=== PATIENT | male | born 1980 | race African-American/Black ===

== ENCOUNTER 2022-07-28 07:36 | Emergency (ER) | payer OTHER, SELFPAY ==
[2022-07-28] MEDS ORDERED: HYDROCODONE/APAP 10/325 TAB ONE (08:26)
--- NOTE | 2022-07-28 09:20 | RAD REPORT ---
EXAM DESCRIPTION: RAD - Knee Left 3 View - 07/28/2022 9:02 am CLINICAL HISTORY: PAIN COMPARISON: No comparisons FINDINGS: The medial tibial plateau is fractured. There appears to be a sagittally oriented fracture plane in the medial tibial plateau near the tibial spine. An additional fracture line is seen extend ing towards the medial cortical margin. No depression of the medial tibial plateau. No other fracture changes are seen.Small joint effusion is identified. No lipoma hemarthrosis identif ied. No joint space narrowing. No soft tissue abnormality. IMPRESSION: Left knee medial tibial plateau fracture without depression or displacement.
--- NOTE | 2022-07-28 09:33 | EDPHYS ---
Physician Documentation [facility] Name: Galo Yanez Age: 41 yrs Sex: Male : 1980 Arrival Date: 07/28/2022 Time: 07:37 Bed 8 Private MD: ED Physician Sincere Lindo HPI: 07/28 08:03 This 41 yrs old Black Male presents to ER via EMS with complaints of knee injury. rn 08:19 The patient presents with decreased range of motion, an injury, pain. The complaints rn affect the left knee. Onset: The symptoms/episode began/occurred just prior to arrival. Modifying factors: The symptoms are alleviated by remaining still, the symptoms are aggravated by movement, weight bearing, bending knee. Severity of symptoms: At their worst the symptoms were moderate, in the emergency department the symptoms are unchanged. The patient has not experienced similar symptoms in the past. The patient has not recently seen a physician. Pt reports attacked by 2 dogs today, was running away and jumped into truck, hurting left knee. Reports swelling and painful ROM. NO previous knee problem. Reports small skin tears/dog bites but not bad and he is not here for the bites. . Historical: - Allergies: 07:49 No Known Allergies; mb9 - Home Meds: 07:49 None [Active]; mb9 - PMHx: 07:49 Anxiety; mb9 - PSHx: 07:49 None; mb9 - Immunization history:: Adult Immunizations up to date. - Social history:: Smoking status: Patient reports the use of cigarette tobacco products, smokes one-half pack cigarettes per day. - Family history:: not pertinent. - Hospitalizations: : No recent hospitalization is reported. ROS: 08:19 Constitutional: Negative for fever, chills, and weight loss, Cardiovascular: Negative rn for chest pain, palpitations, and edema, Respiratory: Negative for shortness of breath, cough, wheezing, and pleuritic chest pain, Abdomen/GI: Negative for abdominal pain, nausea, vomiting, diarrhea, and constipation, Back: Negative for injury and pain, MS/Extremity: + left knee pain Skin: + small skin tears and dog bites to right shoulder/right foot/right thigh Neuro: Negative for headache, weakness, numbness, tingling, and seizure. Exam: 08:19 Constitutional: This is a well developed, well nourished patient who is awake, alert, rn and in no acute distress. Head/Face: Normocephalic, atraumatic. Eyes: Periorbital areas with no swelling, redness, or edema. Cardiovascular: Regular rate and rhythm. No pulse deficits. Respiratory: No increased work of breathing, no retractions or nasal flaring. Abdomen/GI: Soft, non-tender Skin: Superficial skin tears/abrasions to right shoulder/right posterior thigh, and right foot. MS/ Extremity: Pulses equal, no cyanosis. + left knee effusion and painful ROM, no open wounds Neuro: Awake and alert, GCS 15 Vital Signs: 07:40 BP 152 / 95; Pulse 66; Resp 18; Temp 98(O); Pulse Ox 100% on R/A; Pain 10/10; mb9 07:56 BP 154 / 103; Pulse 75; Resp 18; Temp 98; Pulse Ox 100% on R/A; Weight 86.18 kg; Height mb9 5 ft. 6 in. (167.64 cm); Pain 10/10; 09:30 BP 144 / 90; Pulse 82; Resp 18; Pulse Ox 100% on R/A; mb9 07:56 Body Mass Index 30.67 (86.18 kg, 167.64 cm) mb9 MDM: 07:39 Patient medically screened. rn 09:30 Differential diagnosis: closed fracture. Data reviewed: vital signs, nurses notes, rn radiologic studies, plain films, and as a result, I will discharge patient. Counseling: I had a detailed discussion with the patient and/or guardian regarding: the historical points, exam findings, and any diagnostic results supporting the discharge/admit diagnosis, radiology results, the need for outpatient follow up, to return to the emergency department if symptoms worsen or persist or if there are any questions or concerns that arise at home. Response to treatment: the patient's symptoms have mildly improved after treatment, and as a result, I will discharge patient. Special discussion: I discussed with the patient/guardian in detail that at this point there is no indication for admission to the hospital. It is understood, however, that if the symptoms persist or worsen the patient needs to return immediately for re-evaluation. Based on the history and exam findings, there is no indication for further emergent testing or inpatient evaluation. I discussed with the patient/guardian the need to see the orthopedic surgeon for further evaluation of the symptoms. ED course: Pt with nondisplaced tibial plateau fracture, will place in knee immobilizer and dc home with ortho f/u, non-weight bearing and crutches.. 07/28 07:39 Order name: XRAY Knee LEFT 3 view; Complete Time: 09:29 rn 07/28 07:39 Order name: Wound Care; Complete Time: 08:28 rn 07/28 07:39 Order name: Wound dressing; Complete Time: 08:28 rn 07/28 08:03 Order name: Knee Immobilizer; Complete Time: 08:49 rn 07/28 08:03 Order name: Crutches; Complete Time: 08:49 rn Administered Medications: 08:27 Drug: [place] (HYDROcodone-acetaminophen) 10 mg-325 mg 1 tabs Route: PO; mb9 10:01 Follow up: Response: No adverse reaction mb9 Disposition Summary: 07/28/22 09:32 Discharge Ordered Location: Home rn Problem: new rn Symptoms: have improved rn Condition: Stable rn Diagnosis - Left, acute, closed, tibial plateau fracture rn Followup: rn - With: Carson Bella MD - When: 2 - 3 days - Reason: Recheck today's complaints, Re-evaluation by your physician Discharge Instructions: - Nondisplaced Tibial Plateau Fracture rn - Discharge Summary Sheet aa5 - Crutch Use, Adult, [id number] aa5 Forms: - Medication Reconciliation Form rn - Thank You Letter rn - Antibiotic rn chemical dependency - Prescription Opioid Use rn - Work release form tw2 Prescriptions: - Tylenol-Codeine #3 300 mg-30 mg Oral - take 1 tablet by ORAL route every 6-8 hours As needed; 15 tablet; Refills: 0, rn Product Selection Permitted - Augmentin 875-125 mg Oral Tablet - take 1 tablet by ORAL route every 12 hours for 10 days; 20 tablet; Refills: 0, rn Product Selection Permitted Signatures: Dispatcher [employer] Sincere William MD MD rn Breneman, Mary Beth, RN RN mb9 Corrections: (The following items were deleted from the chart) 07:42 07:42 Knee Left 3 View ordered. EDMS EDMS
--- NOTE | 2022-07-28 09:33 | ER ---
Nurse's Notes [facility] Name: Galo Yanez Age: 41 yrs Sex: Male : 1980 Arrival Date: 07/28/2022 Time: 07:37 Bed 8 Private MD: Diagnosis: Left, acute, closed, tibial plateau fracture Presentation: 07/28 07:38 Note provider at bedside at this time. tw2 07:40 Chief complaint: EMS states: "pt was walking to store last night and two pit bulls came mb9 after him. They bit his right foot, right thigh, and right shoulder. He hurt his left knee while jumping onto a car to get away". Coronavirus screen: Vaccine status: Patient reports receiving the 2nd dose of the covid vaccine. Ebola Screen: No symptoms or risks identified at this time. Initial Sepsis Screen: Does the patient meet any 2 criteria? No. Patient's initial sepsis screen is negative. Does the patient have a suspected source of infection? No. Patient's initial sepsis screen is negative. Risk Assessment: Do you want to hurt yourself or someone else? Patient reports no desire to harm self or others. 07:40 Method Of Arrival: EMS: [facility] mb9 07:40 Acuity: AGUSTÍN 3 mb9 07:40 Onset of symptoms was July 27, 2022. mb9 Triage Assessment: 07:50 General: Appears uncomfortable, Behavior is calm, cooperative, appropriate for age. mb9 Pain: Complains of pain in left knee Pain currently is 10 out of 10 on a pain scale. Quality of pain is described as burning, aching. Neuro: Derm: Skin is dry, Skin is normal. Historical: - Allergies: 07:49 No Known Allergies; mb9 - Home Meds: 07:49 None [Active]; mb9 - PMHx: 07:49 Anxiety; mb9 - PSHx: 07:49 None; mb9 - Immunization history:: Adult Immunizations up to date. - Social history:: Smoking status: Patient reports the use of cigarette tobacco products, smokes one-half pack cigarettes per day. - Family history:: not pertinent. - Hospitalizations: : No recent hospitalization is reported. Screenin:37 Abuse screen: Denies threats or abuse. Nutritional screening: No deficits noted. tw2 Tuberculosis screening: No symptoms or risk factors identified. Fall Risk None identified. Assessment: 07:51 General: Appears uncomfortable, Behavior is calm, cooperative, appropriate for age. mb9 Pain: Complains of pain in left knee Pain does not radiate. Pain currently is 10 out of 10 on a pain scale. Quality of pain is described as burning, aching, Pain began 1 day ago. Aggravated by increased activity, repositioning, weight bearing. Neuro: Level of Consciousness is awake, alert, obeys commands, Oriented to person, place, time, situation, Appropriate for age. Cardiovascular: Heart tones S1 S2 present Rhythm is regular. Respiratory: Airway is patent Respiratory effort is even, unlabored, Respiratory pattern is regular, Breath sounds are clear bilaterally. GI: Abdomen is flat, Bowel sounds present X 4 quads. : No signs and/or symptoms were reported regarding the genitourinary system. EENT: No signs and/or symptoms were reported regarding the EENT system. Derm: Skin is dry, Skin is normal, Skin temperature is warm dog bite noted to right shoulder, right posterior thigh, and right foot. No active bleeding noted. Musculoskeletal: Capillary refill < 3 seconds, Range of motion: limited in left knee Swelling present in left knee. 07:56 Reassessment: [place] [employer] notified last night after incident occurred. Case/incident mb9 number is [id number]. 09:29 General: Appears in no apparent distress. Behavior is calm, cooperative, appropriate mb9 for age. Pain: Complains of pain in left knee Quality of pain is described as burning, aching. Neuro: Level of Consciousness is awake, alert, obeys commands, Oriented to person, place, time, situation, Appropriate for age. Cardiovascular: Heart tones S1 S2 present Rhythm is regular. Respiratory: Airway is patent Respiratory effort is even, unlabored, Respiratory pattern is regular, Breath sounds are clear bilaterally. Derm: Skin is dry, Skin is normal, Skin temperature is warm. Musculoskeletal: Capillary refill < 3 seconds, Range of motion: limited in left knee Swelling. Vital Signs: 07:40 BP 152 / 95; Pulse 66; Resp 18; Temp 98(O); Pulse Ox 100% on R/A; Pain 10/10; mb9 07:56 BP 154 / 103; Pulse 75; Resp 18; Temp 98; Pulse Ox 100% on R/A; Weight 86.18 kg; Height mb9 5 ft. 6 in. (167.64 cm); Pain 10/10; 09:30 BP 144 / 90; Pulse 82; Resp 18; Pulse Ox 100% on R/A; mb9 07:56 Body Mass Index 30.67 (86.18 kg, 167.64 cm) mb9 ED Course: 07:35 Arm band placed on. mb9 07:37 Patient arrived in ED. tw2 07:37 Bed in low position. Call light in reach. Pulse ox on. NIBP on. Warm blanket given. tw2 07:39 Sincere Lindo MD is Attending Physician. rn 07:40 Josephine Good, RN is Primary Nurse. mb9 07:49 Triage completed. mb9 09:04 XRAY Knee LEFT 3 view In Process Unspecified. EDMS 09:31 Carson Bella MD is Referral Physician. rn 09:31 No provider procedures requiring assistance completed. mb9 10:10 Patient did not have IV access during this emergency room visit. mb9 Administered Medications: 08:27 Drug: [place] (HYDROcodone-acetaminophen) 10 mg-325 mg 1 tabs Route: PO; mb9 10:01 Follow up: Response: No adverse reaction mb9 Medication: 09:32 VIS not applicable for this client. mb9 Outcome: 09:32 Discharge ordered by . rn 10:09 Discharged to home via wheelchair. mb9 10:09 Condition: stable 10:09 Discharge instructions given to patient, Instructed on discharge instructions, follow up and referral plans. Demonstrated understanding of instructions, follow-up care, medications, Prescriptions given X 2. 10:10 Patient left the ED. mb9 Signatures: Dispatcher [employer] EDMS Sincere Lindo MD MD rn Wise, Tara, RN RN tw2 Josephine Good, RN RN mb9
[2022-07-28 10:14] VITALS: TEMP 98; O2SAT 100
[2022-07-28 10:17] VITALS: BP 144/90
== END 2022-07-28 10:10 | disposition home or self-care (01) ==
LOC: ER 07:36
DX: S82.142A Displaced bicondylar fracture of left tibia, initial encounter for closed fracture (principal); W22.8XXA Striking against or struck by other objects, initial encounter; Y93.89 Activity, other specified; Y92.9 Unspecified place or not applicable; F41.9 Anxiety disorder, unspecified; F17.210 Nicotine dependence, cigarettes, uncomplicated
CPT/HCPCS: 99284